=== PATIENT | female | born 1950 | race Caucasian/White ===

== ENCOUNTER 2020-07-26 07:31 | Outpatient (CLI) | payer MEDICARE, OTHER, SELFPAY ==
--- NOTE | 2020-07-26 07:42 | USCV_ITS ---
Harpal Tinajero Age: 69 Gender: F : 1950 Exam Date: 07/26/2020 07:56 Ordering Phys: Rozina Bar Technologist: Agnieszka Pena Exam Location: [facility] [place] Indication: RT CCA PLAQUING SEEN ON DENTAL XRAYS Risk Factors: Unknown Previous Vascular Surgery: None Right Brachial BP: / Left Brachial BP: / Right Left Velocity (cm/s) Spectral Plaque Velocity (cm/s) Spectral Plaque Syst/Diast Broadening Syst/Diast Broadening 109.20/23.20 Prox CCA 78.80 / 22.90 88.20/ 33.10 Mid CCA 48.40 / 14.90 95.90/ 30.90 Distal CCA 42.80 / 15.50 52.30/ 18.90 Prox ICA 60.10 / 23.70 55.30/ 21.60 Mid ICA 63.10 / 29.60 65.70/ 27.20 Distal ICA 40.00 / 19.40 90.10 ECA 89.70 0.74 ICA/CCA 1.30 Antegrade Vertebral Antegrade 37.80/ 11.80 cm/s 32.30/ 11.20 cm/s Tri Subclavian Bi 36.00 114.4 0 CONCLUSIONS Right ICA stenosis <50%. Mild atheromatous plaque right carotid bulb/ICA. Left ICA stenosis <50%. Normal antegrade Doppler flow noted in the right vertebral artery. Normal antegrade Doppler flow noted in the left vertebral artery. Miguel Duran MD (Electronically Signed) Final Date: 26 July 2020 17:12 S
== END 2020-07-26 07:32 | disposition home or self-care (01) ==
LOC: US 07:36
PROVIDERS: PCP Registered Nurse; Visit Provider Registered Nurse
DX: I65.23 Occlusion and stenosis of bilateral carotid arteries (principal)
CPT/HCPCS: 93880

== ENCOUNTER 2020-09-24 13:46 | Outpatient (CLI) | payer MEDICARE, OTHER, SELFPAY ==
--- NOTE | 2020-09-24 13:53 | MM_ITS ---
WS: [id number] BILATERAL SCREENING DIGITAL MAMMOGRAM WITH CAD HISTORY: SCREENING COMPARISON: 05/01/2019 and 03/15/2018 Bilateral CC and MLO views submitted. Computer aided detection analyzed. Breast composition: There are scattered areas of fibroglandular density. No suspicious masses, microc alcifications or architectural distortion. Benign calcifications in the anterior breast. MM/[place] [id number] IMPRESSION: BI-RADS: 2-Benign FOLLOW UP: 1 Year Follow-up
== END 2020-09-24 13:47 | disposition home or self-care (01) ==
LOC: RADSHAW 13:50
PROVIDERS: PCP Registered Nurse; Visit Provider Registered Nurse
DX: Z12.31 Encounter for screening mammogram for malignant neoplasm of breast (principal)
CPT/HCPCS: 77067

== ENCOUNTER 2021-01-03 10:20 | Outpatient (CLI) | payer MEDICARE, OTHER, SELFPAY ==
--- NOTE | 2021-01-03 10:33 | XR_ITS ---
WS: [id number] Lumbar spine, 3 views, 01/03/2021 Clinical Data: NEUROPATHY OF BOTH FEET Comparison: None. Findings: No compression fractures or subluxation is seen. There is disc space narrowing at L4-L5 and L5-S1. Th ere is minimal anterior osteophyte formation of all the lumbar vertebral bodies.. The transverse proc esses and SI joints are normal. There is a large amount of fecal material in the ascending colon. The patient has had pelvic surgery with surgical clips adjacent to the superior pubic ramus. XR/XR lumbar spine 2-3V* [id number] Impression: 1. Degenerative disc narrowing at L4-L5 and L5-S1. 2. Mild osteoarthritis of all the lumbar vertebral bodies.
== END 2021-01-03 10:21 | disposition home or self-care (01) ==
LOC: LAB 10:31
PROVIDERS: PCP Registered Nurse; Visit Provider Registered Nurse
DX: G57.93 Unspecified mononeuropathy of bilateral lower limbs (principal); M47.816 Spondylosis without myelopathy or radiculopathy, lumbar region
CPT/HCPCS: 72100

== ENCOUNTER 2022-05-08 13:52 | Outpatient (CLI) | payer MEDICARE, OTHER, SELFPAY ==
--- NOTE | 2022-05-08 14:18 | MM_ITS ---
WS: [email or web address] BILATERAL 3D TOMOSYNTHESIS DIGITAL SCREENING MAMMOGRAPHY WITH CAD CLINICAL INFORMATION: SCREENING HISTORY: Screening mammogram. No current complaints. COMPARISON: September 24, 2020 TECHNIQUE: Bilateral CC and MLO views. FINDINGS: Scattered fibroglandular densities bilaterally. Punctate calcifications. Secretory calcifications. No suspicious focal mass, asymmetry, calcifications, or architectural distortion. No evidence of malign leyla. MM/[place] [id number] IMPRESSION: BI-RADS: 2-Benign FOLLOW UP: 1 Year Follow-up Recommend return to annual screening mammography.
== END 2022-05-08 13:53 | disposition home or self-care (01) ==
PROVIDERS: PCP Registered Nurse; Visit Provider Registered Nurse
DX: E04.1 Nontoxic single thyroid nodule (principal); Z12.31 Encounter for screening mammogram for malignant neoplasm of breast; E05.90 Thyrotoxicosis, unspecified without thyrotoxic crisis or storm; G30.9 Alzheimer's disease, unspecified; F02.80 Dementia in other diseases classified elsewhere, unspecified severity, without behavioral disturbance, psychotic disturbance, mood disturbance, and anxiety
CPT/HCPCS: 36415; 77063; 77067; 84439; 84443; 84480; 99204

== ENCOUNTER → 2022-10-15 13:40 | Outpatient (BNVA) | payer MEDICARE, OTHER, SELFPAY | PROVIDERS: PCP Registered Nurse; Visit Provider Internal Medicine Cardiovascular Disease | DX: I10 Essential (primary) hypertension (principal) | CPT/HCPCS: 99214; Q3014 ==

== ENCOUNTER → 2022-10-26 10:51 | Outpatient (BNVA) | payer MEDICARE, OTHER, SELFPAY | PROVIDERS: PCP Registered Nurse; Visit Provider Internal Medicine | DX: I10 Essential (primary) hypertension (principal); E04.1 Nontoxic single thyroid nodule; E05.90 Thyrotoxicosis, unspecified without thyrotoxic crisis or storm | CPT/HCPCS: 36415; 84439; 84443; 99214 ==

== ENCOUNTER 2022-11-23 08:47 | Outpatient (CLI) | payer MEDICARE, OTHER, SELFPAY ==
--- NOTE | 2022-11-23 09:15 | US_ITS ---
WS: [email or web address] ULTRASOUND THYROID TECHNIQUE: Ultrasound of the thyroid. CLINICAL INFORMATION: thyroid nodule COMPARISON: None. FINDINGS: Thyroid: Markedly enlarged heterogeneous RIGHT thyroid lobe. Findings compatible with multinodular go iter. Smaller heterogeneous LEFT thyroid lobe. No dominant nodules LEFT thyroid lobe. Incidental colloid cy sts LEFT lobe. Right thyroid lobe: 6.9 cm x 3.5 cm x 3.1 cm Left thyroid lobe: 5.2 cm x 1.2 cm x 0.9 cm. Isthmus: 0.4 mm. Cervical lymphadenopathy: None. US/US thyroid [id number] IMPRESSION: 1. Markedly enlarged RIGHT thyroid lobe with multinodular goiter. RIGHT lobe v olume 38 cc. 2. No suspicious nodules in the LEFT thyroid lobe.
== END 2022-11-23 08:48 | disposition home or self-care (01) ==
LOC: RAD 08:50
PROVIDERS: PCP Registered Nurse; Visit Provider Internal Medicine
DX: E05.90 Thyrotoxicosis, unspecified without thyrotoxic crisis or storm (principal); E04.1 Nontoxic single thyroid nodule
CPT/HCPCS: 76536

== ENCOUNTER → 2023-02-22 12:54 | Outpatient (BNVA) | payer MEDICARE, OTHER, SELFPAY | PROVIDERS: PCP Registered Nurse; Visit Provider Internal Medicine | DX: I10 Essential (primary) hypertension (principal); E05.90 Thyrotoxicosis, unspecified without thyrotoxic crisis or storm | CPT/HCPCS: 36415; 84439; 84443; 84480 ==

== ENCOUNTER → 2023-02-22 12:54 | Outpatient (BNVA) | payer MEDICARE, OTHER, SELFPAY | PROVIDERS: PCP Registered Nurse; Visit Provider Internal Medicine | DX: E04.1 Nontoxic single thyroid nodule (principal); E05.90 Thyrotoxicosis, unspecified without thyrotoxic crisis or storm; I10 Essential (primary) hypertension | CPT/HCPCS: 99214 ==

== ENCOUNTER 2023-03-03 09:29 | Outpatient (CLI) | payer MEDICARE, OTHER, SELFPAY ==
--- NOTE | 2023-03-03 09:51 | XR_ITS ---
WS: [email or web address] XR foot RT min 3V* [id number] REASON FOR EXAM: FOOT PAIN, BILATERAL FINDINGS: No fracture or focal bone lesion. No periosteal reaction or bony erosion. Mild to moderate narrowing of the joint spaces with subchondral sclerosis and osteophytosis of the DI P and PIP joints of the toes. Mild narrowing of the joint spaces with subchondral sclerosis in the Lisfranc, intertarsal, and Chopa rt joints of the midfoot. Subtalar joint is intact and relatively well-preserved. Small calcaneal plantar enthesophyte. 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 Small calcaneal enthesophyte.
--- NOTE | 2023-03-03 09:52 | XR_ITS ---
WS: [email or web address] XR foot LT min 3V* [id number] REASON FOR EXAM: FOOT PAIN, BILATERAL FINDINGS: No fracture or focal bone lesion. No periosteal reaction or bony erosion. Mild to moderate narrowing of the joint space with mild subchondral sclerosis and osteophytosis in th e DIP and PIP joints of the toes. Mild narrowing with subchondral sclerosis in the navicular cuneiform articulations. Similar arthropat hy in the Chopart joint. Subtalar joint is intact and relatively well-preserved. Small calcaneal plantar enthesophyte. XR/XR foot LT min 3V* [id number] IMPRESSION: Mild to moderate osteoarthritis in the forefoot and midfoot as above. Small calcaneal enthesophyte.
== END 2023-03-03 09:30 | disposition home or self-care (01) ==
PROVIDERS: PCP Registered Nurse; Referring Provider Podiatrist Foot & Ankle Surgery; Visit Provider Nurse Practitioner Family
DX: M19.071 Primary osteoarthritis, right ankle and foot (principal); M19.072 Primary osteoarthritis, left ankle and foot
CPT/HCPCS: 73630

== ENCOUNTER → 2023-04-26 09:58 | Outpatient (BNVA) | payer MEDICARE, OTHER, SELFPAY | PROVIDERS: PCP Registered Nurse; Visit Provider Podiatrist Foot & Ankle Surgery | DX: M21.41 Flat foot [pes planus] (acquired), right foot; M21.42 Flat foot [pes planus] (acquired), left foot; M19.071 Primary osteoarthritis, right ankle and foot; M19.072 Primary osteoarthritis, left ankle and foot | CPT/HCPCS: 99204 ==

== ENCOUNTER 2023-08-02 07:30 | Outpatient (CLI) | payer MEDICARE, OTHER, SELFPAY ==
--- NOTE | 2023-08-02 08:00 | US_ITS ---
WS: [email or web address] THYROID ULTRASOUND HISTORY: thyroid nodule COMPARISON: 11/23/2022 Right lobe: 3.1 cm x 3.6 cm x 6.0 cm (w x ap x l). Volume: 34.7 cm3. Enlarged heterogeneous nodular RIGHT thyroid with mild increased vascularity. Similar in appearance t o the prior examination. There is several echogenic fibrous septa noted throughout the thyroid. No ec hogenic foci. No discrete mass. Left lobe: 1.1 cm x 0.9 cm x 4.4 cm (w x ap x l). Volume: 2.2 cm3. Small caliber, mildly atrophic thyroid. No increased vascularity. No discrete nodule. Previously note d colloid cyst is not present. Isthmus: 1.2 cm. IMPRESSION: 1. RIGHT thyromegaly with a multinodular appearance suggesting goiter. There is no discrete mass. Ove rall similar in appearance to 11/23/2022. 2. Atrophic LEFT thyroid lobe. Stable.
== END 2023-08-02 07:31 | disposition home or self-care (01) ==
LOC: RAD 07:30
PROVIDERS: PCP Registered Nurse; Visit Provider Internal Medicine
DX: E04.1 Nontoxic single thyroid nodule (principal)
CPT/HCPCS: 36415; 76536; 84439; 84443; 84480

== ENCOUNTER → 2023-08-03 09:51 | Outpatient (BNVA) | payer MEDICARE, OTHER, SELFPAY | PROVIDERS: PCP Registered Nurse; Visit Provider Anesthesiology Pain Medicine | DX: M48.061 Spinal stenosis, lumbar region without neurogenic claudication; M47.816 Spondylosis without myelopathy or radiculopathy, lumbar region | CPT/HCPCS: 99214 ==

== ENCOUNTER → 2023-08-17 15:04 | Outpatient (BNVA) | payer MEDICARE, OTHER, SELFPAY | PROVIDERS: PCP Registered Nurse; Visit Provider Podiatrist Foot & Ankle Surgery | DX: M21.41 Flat foot [pes planus] (acquired), right foot; M21.42 Flat foot [pes planus] (acquired), left foot; M19.071 Primary osteoarthritis, right ankle and foot; M19.072 Primary osteoarthritis, left ankle and foot | CPT/HCPCS: 99213 ==

== ENCOUNTER → 2023-10-15 09:32 | Outpatient (BNVA) | payer MEDICARE, OTHER, SELFPAY | PROVIDERS: PCP Registered Nurse; Visit Provider Internal Medicine | DX: I10 Essential (primary) hypertension (principal); E04.1 Nontoxic single thyroid nodule; E05.90 Thyrotoxicosis, unspecified without thyrotoxic crisis or storm | CPT/HCPCS: 99214 ==

== ENCOUNTER 2023-10-25 09:27 | Outpatient (CLI) | payer MEDICARE, OTHER, SELFPAY ==
[2023-10-25 10:23] LABS: Free T4 Free Thyroxine 1.05 ng/dL (0.82-1.77); Thyroid Stimulating Hormone 1.34 uIU/mL (0.27-4.20)
== END 2023-10-25 09:28 | disposition home or self-care (01) ==
LOC: LAB 09:28
PROVIDERS: PCP Registered Nurse; Visit Provider Internal Medicine
DX: I10 Essential (primary) hypertension (principal)
CPT/HCPCS: 36415; 84439; 84443

== ENCOUNTER → 2023-12-20 13:42 | Outpatient (BNVA) | payer MEDICARE, OTHER, SELFPAY | PROVIDERS: PCP Registered Nurse; Visit Provider Internal Medicine Cardiovascular Disease | DX: I10 Essential (primary) hypertension (principal); E78.2 Mixed hyperlipidemia; E03.9 Hypothyroidism, unspecified; K21.9 Gastro-esophageal reflux disease without esophagitis | CPT/HCPCS: 99213 ==

== ENCOUNTER 2024-03-06 08:57 | Outpatient (CLI) | payer MEDICARE, OTHER, SELFPAY ==
--- NOTE | 2024-03-06 09:01 | MM_ITS ---
WS: [email or web address] BILATERAL SCREENING DIGITAL TOMOSYNTHESIS MAMMOGRAM WITH CAD HISTORY: SCREENING COMPARISON: 05/08/2022, 09/24/2020 Bilateral CC and MLO views with tomosynthesis and synthetic mammography submitted. Computer aided det ection analyzed. Breast composition: There are scattered areas of fibroglandular density. No suspicious masses, microc alcifications or architectural distortion. Benign calcifications in each breast. MM/[place] [id number] IMPRESSION: BI-RADS: 2-Benign FOLLOW UP: 1 Year Follow-up
== END 2024-03-06 08:58 | disposition home or self-care (01) ==
LOC: RAD 08:57
PROVIDERS: PCP Registered Nurse; Visit Provider Family Medicine
DX: Z12.31 Encounter for screening mammogram for malignant neoplasm of breast (principal); R92.323 Mammographic fibroglandular density, bilateral breasts; R92.1 Mammographic calcification found on diagnostic imaging of breast
CPT/HCPCS: 77063; 77067

== ENCOUNTER → 2024-04-12 10:07 | Outpatient (BNVA) | payer MEDICARE, OTHER, SELFPAY | PROVIDERS: PCP Registered Nurse; Visit Provider Internal Medicine | DX: E04.1 Nontoxic single thyroid nodule (principal); E05.90 Thyrotoxicosis, unspecified without thyrotoxic crisis or storm; I10 Essential (primary) hypertension | CPT/HCPCS: 99214 ==

== ENCOUNTER → 2024-10-12 09:20 | Outpatient (BNVA) | payer MEDICARE, SELFPAY | PROVIDERS: PCP Registered Nurse; Visit Provider Internal Medicine | DX: E04.1 Nontoxic single thyroid nodule (principal); E05.90 Thyrotoxicosis, unspecified without thyrotoxic crisis or storm | CPT/HCPCS: 36415; 84439; 84443; 84480; 99214 ==

== ENCOUNTER 2024-10-26 07:47 | Outpatient (CLI) | payer MEDICARE, OTHER, SELFPAY ==
--- NOTE | 2024-10-26 08:30 | US_ITS ---
WS: [email or web address] THYROID ULTRASOUND HISTORY: thyroid nodule COMPARISON: 08/02/2023, 11/23/2022 Right lobe: 3.2 cm x 3.2 cm x 5.6 cm (w x ap x l). Volume: 28.5 cm3. Enlarged heterogeneous gland. There are multiple simple nodules and fibrous septa. Mild increased vascularity. There is no discrete mass or nodule. No increase in size or development of calcifications. Left lobe: 1.1 cm x 1.1 cm x 3.2 cm (w x ap x l). Volume: 1.8 cm3. Small caliber LEFT thyroid. There are a few scattered subcentimeter nodules which appear to be colloid cysts or pseudo nodules. No mass or calcification. Isthmus: 0.7 cm. US/US thyroid [id number] IMPRESSION: 1. Similar appearance to the thyroid gland as compared to prior studies dating back to 11/23/2022. 2. Enlarged heterogeneous RIGHT lobe. This may be the sequela of prior Hashimo to's or multinodular goiter. 3. Small caliber LEFT thyroid, stable.
== END 2024-10-26 07:48 | disposition home or self-care (01) ==
PROVIDERS: PCP Registered Nurse; Visit Provider Internal Medicine
DX: E04.2 Nontoxic multinodular goiter (principal); E05.90 Thyrotoxicosis, unspecified without thyrotoxic crisis or storm; R93.89 Abnormal findings on diagnostic imaging of other specified body structures
CPT/HCPCS: 76536

== ENCOUNTER 2025-03-13 11:09 | Outpatient (CLI) | payer MEDICARE, OTHER, SELFPAY ==
--- NOTE | 2025-03-13 11:16 | MM_ITS ---
WS: [email or web address] BILATERAL 3D TOMOSYNTHESIS DIGITAL SCREENING MAMMOGRAPHY WITH CAD CLINICAL INFORMATION: SCREENING HISTORY: Screening mammogram. No current complaints. COMPARISON: 2023 TECHNIQUE: Bilateral CC and MLO views. FINDINGS: Scattered fibroglandular densities bilaterally. No suspicious focal mass, asymmetry, calcifications, or architectural distortion. No evidence of malignancy. Bilateral secretory calcifications. MM/MM scr tomosynthesis [id number] IMPRESSION: DENSITY: There are scattered areas of fibroglandular density. BI-RADS: 2 - Benign. FOLLOW UP: 1 Year Follow-up Recommend return to annual screening mammography.
== END 2025-03-13 11:10 | disposition home or self-care (01) ==
PROVIDERS: PCP Registered Nurse; Visit Provider Family Medicine
DX: Z12.11 Encounter for screening for malignant neoplasm of colon (principal); M79.671 Pain in right foot; M79.672 Pain in left foot
CPT/HCPCS: 73630; 77063; 77067

== ENCOUNTER → 2025-04-09 11:45 | Outpatient (BNVA) | payer MEDICARE, OTHER, SELFPAY | PROVIDERS: PCP Registered Nurse; Visit Provider Internal Medicine | DX: I10 Essential (primary) hypertension (principal); E04.1 Nontoxic single thyroid nodule; E05.90 Thyrotoxicosis, unspecified without thyrotoxic crisis or storm | CPT/HCPCS: 36415; 84439; 84443; 84480 ==

== ENCOUNTER → 2025-04-24 10:07 | Outpatient (BNVA) | payer MEDICARE, OTHER, SELFPAY | PROVIDERS: PCP Registered Nurse; Visit Provider Podiatrist Foot & Ankle Surgery | DX: M19.071 Primary osteoarthritis, right ankle and foot (principal); M19.072 Primary osteoarthritis, left ankle and foot; M21.41 Flat foot [pes planus] (acquired), right foot; M21.42 Flat foot [pes planus] (acquired), left foot | CPT/HCPCS: 99213 ==

== ENCOUNTER 2025-05-08 14:30 | Outpatient (CLI) | payer MEDICARE, OTHER, SELFPAY | END 2025-05-08 14:31 | disposition home or self-care (01) | LOC: SPT 14:30 | PROVIDERS: PCP Registered Nurse; Visit Provider Podiatrist Foot & Ankle Surgery | DX: Z46.89 Encounter for fitting and adjustment of other specified devices (principal); M19.079 Primary osteoarthritis, unspecified ankle and foot; M21.41 Flat foot [pes planus] (acquired), right foot; M21.42 Flat foot [pes planus] (acquired), left foot; M19.90 Unspecified osteoarthritis, unspecified site | CPT/HCPCS: L3030 ==

== ENCOUNTER → 2025-07-24 11:08 | Outpatient (BNVA) | payer MEDICARE, OTHER, SELFPAY | PROVIDERS: PCP Registered Nurse; Visit Provider Podiatrist Foot & Ankle Surgery | DX: M19.071 Primary osteoarthritis, right ankle and foot (principal); M19.072 Primary osteoarthritis, left ankle and foot; M21.41 Flat foot [pes planus] (acquired), right foot; M21.42 Flat foot [pes planus] (acquired), left foot | CPT/HCPCS: 99213 ==